=== PATIENT | female | born 1935 | race Caucasian/White ===

== ENCOUNTER 2021-09-17 11:26 | Emergency (ER) | payer MEDICARE, OTHER, SELFPAY ==
[2021-09-17 11:27] VITALS: BP 141/91; PULSE 61; RESP 18; TEMP 36.7; O2SAT 95; BMI 16.2
[2021-09-17 11:40] VITALS: BP 172/108; PULSE 65; RESP 16; TEMP 36.7; O2SAT 96
[2021-09-17 11:42] VITALS: O2SAT 96
[2021-09-17] MEDS: Famotidine 20 MG Tablet PO (11:55)
[2021-09-17] MEDS: Ondansetron ODT 4 MG Tablet PO (11:55)
--- NOTE | 2021-09-17 11:55 | EDS_ITS ---
HPI HPI - URI History of Present Illness Chief Complaint: Cough Narrative Narrative: 86-year-old female diagnosed with COVID with symptoms started on the presenting with generalized weakness. Patient states that since Tuesday she has felt sick. She admits to a cough, cold, body aches. She states he is no longer having a fever. This morning she was able to eat and drink but admits to decreased p.o. intake over the last couple of days because she just did not feel good. She denies vomiting or nausea. No diarrhea. No urinary complaints. Patient was sent in by Heidi Quarles to be evaluated because she was complaining of being weak at home. Patient ambulates with a walker at baseline. She was able to ambulate into the emergency room with her walker. She states that her watches her very carefully so that she does not fall. He has not had any falls. ROS ROS ED Constitutional Constitutional ED: Reports chills, fever(s) and weight loss ENT ENT ED: Reports rhinorrhea and sore throat Cardiovascular Cardiovascular: Denies chest pain or palpitations Respiratory/Chest Respiratory/Chest: Reports cough; Denies dyspnea or dyspnea on exertion Gastrointestinal Gastrointestinal: Denies abdominal pain, diarrhea, nausea or vomiting Genitourinary Genitourinary ED: Denies dysuria Musculoskeletal Musculoskeletal: Reports myalgias; Denies arthralgias, back pain or neck pain Integumentary Denies rash Neurologic Neurologic: Denies headache(s) or weakness Psychiatric Psychiatric: Denies anxiety or depression Endocrine Endocrinology: Denies polydipsia or polyuria PFSH PFSH Home Medications acetaminophen [Tylenol 8 Hour] 650 mg PO Q8H PRN #30 tab 09/17/21 [Rx Last Taken Unknown] famotidine [Pepcid] 20 mg PO BID PRN #10 tab 09/17/21 [Rx Last Taken Unknown] ondansetron 4 mg PO Q8H PRN #14 tab 09/17/21 [Rx Last Taken Unknown] Allergy/AdvReac Type Severity Reaction Status Date / Time Penicillins [PCN] Allergy Anaphylaxis Verified 09/17/21 11:31 Social History Smoking Status: Never smoker EXAM Physical Exam Const Vital Signs: 09/17/21 11:27 09/17/21 11:40 09/17/21 11:42 Temperature 98.0 F 98.0 F Temperature Source Temporal Temporal Pulse Rate 61 65 Respiratory Rate 18 16 Respiratory Effort Normal Non-Labored Respiratory Depth Normal Respiratory Pattern Normal Blood Pressure 141/91 H 172/108 H Blood Pressure Mean 107 129 Pulse Ox 95 96 Oxygen Delivery Method Room Air Room Air Room Air Positive well nourished General Appearance ED: NAD; Negative for pallor HEENT Reports moist mucous membranes normocephalic and atraumatic Throat: posterior oropharynx abnormal Eyes PERRL and EOMs intact bilaterally Neck no lymphadenopathy, supple and no meningeal signs Resp normal respiratory effort and clear to auscultation bilaterally Cardio Rate: regular rate Rhythm: regular rhythm GI non-tender and non-distended Auscultation: normoactive bowel sounds Extremity normal to inspection; Negative for full ROM General Extremety ED: Negative for cyanosis General Extremity: Negative for cyanosis Neuro oriented x3, CN's II-XII intact bilaterally and no sensory deficits noted Sensorium / Orientation: alert Motor Exam: strength 5/5 throughout Psych mental status grossly normal Skin General Skin Exam: Negative for jaundice or pallor Lesions: no lesions Rashes: no rashes MDM MDM MDM Narrative Medical decision making narrative: Patient reports that she is improving today. She was diagnosed with COVID-19. She does still have a mild cough but is not short of breath. She does still have some generalized weakness and is able to ambulate with her walker as she does at baseline. She has not had any falls. She states that other than decreased p.o. intake she does not have nausea. She is still having body aches and chills from time to time. She requests something for this and I will prescribe her Tylenol. She states that her stomach has been a little bit upset at times but denies that this is nausea. I will give her Pepcid to take as well as Zofran so that she can hydrate. I did offer the patient IV fluids but she states she does not need any. She states she is just trying to get rid of this virus. The patient's vital signs are normal. Her blood pressure is actually slightly high at 141/91. Pulse 61, respirations 18, temperature 98 ?F and O2 saturations are 95-96 on room air. I do not believe this patient needs any imaging. I did insurance counselor her that she may be slightly dehydrated but her vital signs were very good. I counseled her to hydrate well throughout the day. She states she has been sleeping a lot and I encouraged her to get up and move about and hydrate throughout the day even if she has to lay back down afterwards. She acknowledged understanding of this. Patient to darling dumont-up with her primary care provider outpatient. Impression: 1. COVID-19 2. Generalized weakness 3. Decreased p.o. intake Discharge Plan Triage Chief Complaint: Cough ED Provider: Daniele Francisco Dx/Rx/DC Orders Instructions: Coronavirus Disease 2019 (COVID-19): Caring for Yourself or Others Prescriptions: New famotidine [Pepcid] 20 mg tablet 20 mg PO BID PRN (Reason: stomach upset) Qty: 10 RF: 0 ondansetron 4 mg tablet,disintegrating 4 mg PO Q8H PRN (Reason: nausea and vomiting) Qty: 14 RF: 0 acetaminophen [Tylenol 8 Hour] 650 mg tablet extended release 650 mg PO Q8H PRN (Reason: fever or pain) Qty: 30 RF: 0 Primary Care Provider: Nikos Ashford Referrals: Nikos Ashford MD [Primary Care Provider] - Disposition Disposition: Home, Self Care
[2021-09-17 12:18] VITALS: BP 163/108; PULSE 89; RESP 16; O2SAT 96
== END 2021-09-17 12:30 | disposition home or self-care (01) ==
LOC: ED 12:12
PROVIDERS: Emergency Provider Student in an Organized Health Care Education/Training Program; PCP Family Medicine; Visit Provider Student in an Organized Health Care Education/Training Program
DX: U07.1 COVID-19 (principal); R53.1 Weakness
CPT/HCPCS: 99282